=== PATIENT | female | born 1960 | race African-American/Black ===

== ENCOUNTER 2019-06-23 23:10 | Emergency (ER) | payer OTHER ==
--- NOTE | 2019-06-23 23:48 | RAD ---
EXAM: 4 views of the right knee HISTORY: Knee pain COMPARISON: None FINDINGS: No knee effusion is seen. There is no evidence of acute fracture or dislocation. No signifi cant degenerative changes are seen. No soft tissue swelling is present. IMPRESSION: No evidence of acute osseous abnormality.
== END 2019-06-24 00:07 | disposition home or self-care (01) ==
LOC: SCSER 23:10
DX: M25.561 Pain in right knee (principal); I10 Essential (primary) hypertension; R73.03 Prediabetes; Z79.84 Long term (current) use of oral hypoglycemic drugs

== ENCOUNTER 2023-01-25 10:09 | Outpatient (CLI) | payer OTHER | END 2023-01-25 10:10 | disposition home or self-care (01) | LOC: NM 10:09 | PROVIDERS: ATTEND Internal Medicine | DX: I50.32 Chronic diastolic (congestive) heart failure (principal); R06.02 Shortness of breath | CPT/HCPCS: 78452; 93017; A9500 ==

== ENCOUNTER 2024-10-23 13:24 | Outpatient (CLI) | payer OTHER | END 2024-10-23 13:25 | disposition home or self-care (01) | LOC: BICMAMMO 13:24 | PROVIDERS: ATTEND Family Medicine | DX: N64.89 Other specified disorders of breast (principal) | CPT/HCPCS: G0279 ==